=== PATIENT | male | born 1975 | race Two or more races ===

== ENCOUNTER 2018-07-02 09:06 | Emergency (ER) | payer SELFPAY ==
[~2018-07-02] VITALS: Ht 167.6 cm; Wt 104.3 kg
[2018-07-02 09:23] VITALS: BP 98/60
== END 2018-07-02 11:26 | disposition home or self-care (01) ==
LOC: ER 09:06
DX: J02.9 Acute pharyngitis, unspecified (principal); F17.210 Nicotine dependence, cigarettes, uncomplicated; F12.10 Cannabis abuse, uncomplicated
CPT/HCPCS: 71046

== ENCOUNTER 2018-10-28 09:57 | Emergency (ER) | payer MEDICAID ==
[~2018-10-28] VITALS: Ht 167.6 cm; Wt 101.6 kg
[2018-10-28 10:20] VITALS: BP 113/72
== END 2018-10-28 11:33 | disposition home or self-care (01) ==
LOC: ER 09:57
DX: K04.7 Periapical abscess without sinus (principal); I25.10 Atherosclerotic heart disease of native coronary artery without angina pectoris; I10 Essential (primary) hypertension; F17.210 Nicotine dependence, cigarettes, uncomplicated; F12.90 Cannabis use, unspecified, uncomplicated

== ENCOUNTER 2019-02-28 06:18 | Emergency (ER) | payer MEDICAID ==
[~2019-02-28] VITALS: Ht 167.6 cm; Wt 113.4 kg
[2019-02-28 06:56] VITALS: BP 154/98
[2019-02-28 07:16] LABS: INR 3.52 (0.9-1.15); Partial Thromboplastin Time 49.5 sec (23.64-32.05)
[2019-02-28] MEDS ORDERED: TETANUS-DIPTH-ACEL PERTUSSIS 0.5ML SYRG IM ONE (07:30)
[2019-02-28 08:01] LABS: Basophils # (auto) 0 uL; Basophils % (auto) 0.7 % (0.0-2.0); Eosinophils # (auto) 0.1 uL; Eosinophils % (auto) 1.2 % (0.0-7.0); Hematocrit 46.4 % (41.0-53.0); Hemoglobin 15.7 g/dL (13.5-17.5); Lymphocytes # (auto) 1.7 uL; Lymphocytes % (auto) 32.8 % (10.0-50.0); Mean Corpuscular Hemoglobin 29.9 pg (28.0-32.0); Mean Corpuscular Hgb Conc. 33.8 g/dL (32.0-36.0); Mean Corpuscular Volume 88.3 fL (80.0-100.0); Monocytes # (auto) 0.5 uL; Monocytes % (auto) 8.8 % (0.0-12.0); Neutrophils % (auto) 56.5 % (37.0-80.0); Nucleated Red Blood Cells % 0.2 %; Platelet Count (auto) 168 10^3/uL (140-450); Red Blood Cells 5.26 10^6/uL (4.5-5.90); White Blood Cell 5.3 10^3/uL (4.4-10.8)
[2019-02-28 08:17] LABS: Albumin 3.6 g/dL (3.4-5.0); Calcium 8.4 mg/dL (8.5-10.1); Potassium 3.8 mmol/L (3.5-5.1)
[2019-02-28 08:19] LABS: BUN/Creatinine Ratio 14.7
[2019-02-28 08:21] LABS: Bilirubin, Total 0.5 mg/dL (0.2-1.0); Total Protein 8.1 g/dL (6.4-8.2)
== END 2019-02-28 08:51 | disposition home or self-care (01) ==
LOC: ER 06:18
DX: S50.11XA Contusion of right forearm, initial encounter (principal); T45.515A Adverse effect of anticoagulants, initial encounter; F10.10 Alcohol abuse, uncomplicated; I25.10 Atherosclerotic heart disease of native coronary artery without angina pectoris; I11.0 Hypertensive heart disease with heart failure; I50.9 Heart failure, unspecified; X58.XXXA Exposure to other specified factors, initial encounter; Y93.89 Activity, other specified; Y92.89 Other specified places as the place of occurrence of the external cause; Y99.8 Other external cause status
CPT/HCPCS: 36415; 71045; 73090; 80053; 85025; 85610; 85730; 90471; 90715

== ENCOUNTER → 2019-07-07 | Emergency (ER) | payer MEDICAID ==
[~2019-07-07] VITALS: Ht 167.6 cm; Wt 111.1 kg
[~2019-07-07] MED LIST: MECLIZINE HCL 25 MG TAB PO ONE; SODIUM CHLORIDE 0.9% 1,000 ML IV ONE
[2019-07-07 11:48] LABS: Basophils # (auto) 0 10 ^3/uL (0-0.2); Basophils % (auto) 0.5 % (0.0-2.0); Eosinophils # (auto) 0.3 10 ^3/uL (0-0.8); Eosinophils % (auto) 3.1 % (0.0-7.0); Hematocrit 46.2 % (41.0-53.0); Lymphocytes # (auto) 1.6 10 ^3/uL (0.4-5.4); Mean Corpuscular Hemoglobin 30.7 pg (28.0-32.0); Mean Corpuscular Hgb Conc. 34.6 g/dL (32.0-36.0); Mean Corpuscular Volume 88.8 fL (80.0-100.0); Monocytes # (auto) 0.5 10 ^3/uL (0-1.3); Monocytes % (auto) 5.5 % (0.0-12.0); Neutrophils # (auto) 6.1 10 ^3/uL (1.6-8.6); Neutrophils % (auto) 71.9 % (37.0-80.0); Nucleated Red Blood Cells % 0.1 %; Platelet Count (auto) 184 10^3/uL (140-450); Red Blood Cells 5.21 10^6/uL (4.5-5.90); Red Cell Distribution Width 13.6 % (11.8-14.3); White Blood Cell 8.5 10^3/uL (4.4-10.8)
[2019-07-07 12:09] LABS: INR 2.12 (0.9-1.15); Partial Thromboplastin Time 41.7 sec (23.64-32.05)
[2019-07-07 14:42] LABS: Urine WBC None Seen /hpf (0 - 3)
[2019-07-07 15:00] VITALS: BP 120/72
[2019-07-07 15:07] LABS: Urine Bacteria NONE SEEN /hpf (None Seen); Urine Blood Negative /uL (Negative); Urine Specific Gravity 1.026 (1.001-1.035); Urine Sperm PRESENT /hpf (None Seen)
[2019-07-07 15:17] LABS: Alcohol, Urine < 3.0 mg/dL (0-5); Barbiturate Scree,Urine NEGATIVE (NEGATIVE); Benzodiazephine Screen, Urine NEGATIVE (NEGATIVE); Cannabinoid Screen, Urine POSITIVE (NEGATIVE); Cocaine Screen, Urine NEGATIVE (NEGATIVE); Opiate Scree,Urine NEGATIVE (NEGATIVE)
[2019-07-07 15:23] LABS: Amphetamine Screen, Urine NEGATIVE (NEGATIVE); Phencyclidine Screen, Urine NEGATIVE (NEGATIVE)
== END | disposition home or self-care (01) ==
LOC: ER 11:07
DX: H81.10 Benign paroxysmal vertigo, unspecified ear (principal); I25.810 Atherosclerosis of coronary artery bypass graft(s) without angina pectoris; I11.0 Hypertensive heart disease with heart failure; I50.9 Heart failure, unspecified; F12.10 Cannabis abuse, uncomplicated; Z87.891 Personal history of nicotine dependence; Z95.1 Presence of aortocoronary bypass graft
CPT/HCPCS: 36415; 71046; 80307; 81001; 83735; 84443; 84484; 85025; 85610; 85730; 93005; 96360; 99285; J7030

== ENCOUNTER → 2022-03-22 16:48 | Emergency (ER) | payer MEDICAID | END | disposition left against medical advice (07) | LOC: ER 16:48 | DX: U07.1 COVID-19 (principal); Z53.21 Procedure and treatment not carried out due to patient leaving prior to being seen by health care provider ==

== ENCOUNTER 2024-11-18 14:15 | Emergency (ER) | payer MEDICAID ==
[2024-11-18] MEDS ORDERED: CEPH250C PO (14:52)
--- NOTE | 2024-11-18 15:01 | ED.PDOC ---
Eye-HPI HPI Comments 49 y.o male with PMHx of mechanical valve, presents to the ED for a chief complaint of tenderness to the right upper tooth x 2 days associated with swelling x today. Patient reports 6 month history of right sided lower tooth pain and states he has not seen a dentist in over 10 years. Patient denies any fever, chills, discharge, difficulty swallowing or SOB. Chief Complaint: Tooth Pain Time Seen by MD: 14:48 Primary Care Provider: KONSTANTIN Bernabe Notes: Nurses Notes, Medications, Allergies Allergies: Coded Allergies: NO KNOWN ALLERGIES (Unverified , 07/02/18) Home Meds Active Scripts Cephalexin (KEFLEX CAPSULE) 250 Mg Cp, 1 CAP PO QID, #28 CAP Prov:TRESSA EAST MD 11/18/24 Information Source: Patient Mode of Arrival: Ambulatory Timing: Days (2) Duration: Since onset Mouth: Right, Upper, Tender, Swelling Onset: Spontaneous Associated signs and symptoms: Tooth Pain Past Medical History PAST MEDICAL HISTORY: CAD, CHF, HTN, Liver Past Medical History (Other): mechanical valve Surgical History: CABG Surgical History (Other): Valve replacement Family History Family History: Reviewed,noncontributory to illness Social History Smoker: Non-Smoker, Quit Greater Than 1 Year Alcohol: Occasionally Drugs: Denies Drug Use Lives In: Home Constitutional: denies: chills, diaphoresis, fatigue, fever, malaise, sweats, weakness, others EENTM: reports: others (right upper tooth pain with swelling ); denies: blurred vision, double vision, ear bleeding, ear discharge, ear drainage, ear pain, ear ringing, eye pain, eye redness, hearing loss, mouth pain, mouth swelling, nasal discharge, nose bleeding, nose congestion, nose pain, photophobia, tearing, t hroat pain, throat swelling, voice changes Respiratory: denies: cough, hemoptysis, orthopnea, SOB at rest, shortness of breath, SOB with excertion, stridor, wheezing, others Cardiovascular: denies: chest pain, dizzy spells, diaphoresis, Dyspnea on exertion, edema, irregular heart beat, left arm pain, lightheadedness, palpitations, PND, syncope, others Gastrointestinal: denies: abdomen distended, abdominal pain, blood streaked bowels, constipated, diarrhea, dysphagia, difficulty swallowing, hematemesis, melena, nausea, poor appetite, poor fluid intake, rectal bleeding, rectal pain, vomiting, others Genitourinary: denies: burning, dysuria, flank pain, frequency, hematuria, incontinence, penile discharge, penile sore, pain, testicle pain, testicle swelling, urgency, others Neurological: denies: dizziness, fainting, headache, left sided numbness, left sided weakness, numbness, paresthesia, pre-existing deficit, right sided numbness, right sided weakness, seizure, speech problems, tingling, tremors, weakness, others Musculoskeletal: denies: back pain, gout, joint pain, joint swelling, muscle pain, muscle stiffness, neck pain, others Integumetry: denies: bruises, change in color, change in hair/nails, dryness, laceration, lesions, lumps, rash, wounds, others Allergic/Immunocompromised: denies: Difficulty Healing, Frequent Infections, Hives, Itching, others Hematologic/Lymphatic: denies: anemia, blood clots, easy bleeding, easy bruising, swollen glands, others Endocrine: denies: excessive hunger, excessive sweating, excessive thirst, excessive urination, flushing, intolerance to cold, intolerance to heat, unexplained weight gain, unexplained weight loss, others Psychiatric: denies: anxiety, bipolar disorder, depression, hopeless, panic disorder, schizophrenia, sleepless, suicidal, others All Other Systems: Reviewed and Negative Physical Exam General Appearance: Mild Distress HEENT: Pharynx Normal, TMs Normal, Other (Dental caries to the right maxillary upper area) Neck: Full Range of Motion, Non-Tender, Normal, Normal Inspection Respiratory: Chest Non-Tender, Lungs Clear, No Accessory Muscle Use, No Respiratory Distress, Normal Breath Sounds Cardiovascular: No Edema, No JVD, No Murmur, No Gallop, Normal Peripheral Pulses, Regular Rate/Rhythm Breast Exam: Deferred Gastrointestinal: No Organomegaly, Non Tender, No Pulsatile Mass, Normal Bowel Sounds, Soft Genitalia: Deferred Pelvic: Deferred Rectal: Deferred Extremities: No calf tenderness, Normal capillary refill, Normal inspection, Normal range of motion, Non-tender, No pedal edema Musculoskeletal : Apperance: Normal Neurologic: Alert, chemical laboratory tester II-XII nml as Tested, No Motor Deficits, Normal Affect, Normal Mood, No Sensory Deficits Cerebellar Function: Normal Reflexes: Normal Skin: Dry, Normal Color, Warm Lymphatic: No Adenopathy Was a procedure done? Was a procedure done?: No EENT DIFF Eye: N/A Sore Throat: Peritonsillar Abscess, Peritonsillar Cellulitis, Viral Pharyngitis, Other (dental abscess ) X-Ray, Labs, Meds, VS At this time, the patient is being discharged and told to follow up with the dentist The patient will return to the emergency department's the condition worsens Time of 1ST Reevaluation: 14:58 Reevaluation 1ST: Unchanged Patient Education/Counseling: Diagnosis, Treatment, Prognosis, Need For Follow Up Family Education/Counseling: No Family Present Departure 1 Departure Time of Disposition: 15:38 Impression: Primary Impression: Dental caries Disposition: 01 HOME / SELF CARE / HOMELESS Condition: Fair e-Prescriptions Cephalexin (KEFLEX CAPSULE) 250 Mg Cp 1 CAP PO QID, #28 CAP Prov: TRESSA EAST MD 11/18/24 Discharged With: Self Critical Care Note Critical Care Time?: No Stability Stability form required: No I personally scribed for TRESSA EAST MD ([email or web address]) on 11/18/24 at 15:01. Electronically submitted by Sangeetha Sorto ([facility]). TRESSA EAST MD Nov 18, 2024 15:01
[2024-11-18 16:09] VITALS: BP 129/78; PULSE 71; RESP 20; TEMP 98.2; O2SAT 98
== END 2024-11-18 16:24 | disposition home or self-care (01) ==
LOC: ER 14:15
DX: K02.9 Dental caries, unspecified (principal); I11.0 Hypertensive heart disease with heart failure; I50.9 Heart failure, unspecified; I25.10 Atherosclerotic heart disease of native coronary artery without angina pectoris; Z95.1 Presence of aortocoronary bypass graft; Z95.2 Presence of prosthetic heart valve

== ENCOUNTER 2025-03-22 14:56 | Inpatient (IN) | payer MEDICAID ==
[~2025-03-22] VITALS: Ht 167.6 cm; Wt 110.9 kg
[~2025-03-22 14:56] MED LIST changes: +CEPH250C PO; -MECLIZINE HCL 25 MG TAB PO ONE; -SODIUM CHLORIDE 0.9% 1,000 ML IV ONE
--- NOTE | 2025-03-22 15:37 | ED.PDOC ---
History of Present Illness HPI Comments A 50 YEAR OLD MALE PRESENTS TO THE ED WITH COMPLAINT OF LEFT-SIDED FACIAL SWELLING. PATIENT STATES HE BEGAN TO EXPERIENCE LEFT-SIDED FACIAL/JAW SWELLING AND REDNESS TODAY AFTER EATING. PATIENT REPORTS HE ALSO HAS PAIN TO THIS AREA. PATIENT DENIES FEVER, CHILLS, SHORTNESS OF BREATH, CHEST PAIN, ABDOMINAL PAIN, NAUSEA, VOMITING, HEADACHE, OR OTHER COMPLAINTS. NO OTHER SYMPTOMS OR MODIFYING FACTORS AT THIS TIME. PATIENT IS ALERT, ORIENTED X 4, AND HAS STEADY GAIT. Chief Complaint: Face pain Time Seen by MD: 15:06 Primary Care Provider: IMP[employer] Reviewed Notes: Nurses Notes, Medications, Allergies Allergies: Coded Allergies: NO KNOWN ALLERGIES (Unverified , 07/02/18) Home Meds Active Scripts Cephalexin (KEFLEX CAPSULE) 250 Mg Cp, 1 CAP PO QID, #28 CAP Prov:TRESSA EAST MD 11/18/24 Information Source: Patient Mode of Arrival: Ambulatory Severity: Moderate Timing: Days Duration: Since onset, Days Prehospital treatment: None Medication Refill: For: Other (LEFT-SIDED FACIAL/JAW SWELLING) Past Medical History PAST MEDICAL HISTORY: CAD, CHF, HTN, Liver Surgical History: CABG Family History Family History: Reviewed,noncontributory to illness Social History Smoker: Non-Smoker, Quit Greater Than 1 Year Alcohol: Occasionally Drugs: Denies Drug Use Lives In: Home Constitutional: denies: chills, diaphoresis, fatigue, fever, malaise, sweats, weakness, others EENTM: reports: others (LEFT-SIDED FACIAL SWELLING); denies: blurred vision, double vision, ear bleeding, ear discharge, ear drainage, ear pain, ear ringing, eye pain, eye redness, hearing loss, mouth pain, mouth swelling, nasal discharge, nose bleeding, nose congestion, nose pain, photophobia, tearing, throat pain, throat swelling, voice changes Respiratory: denies: cough, hemoptysis, orthopnea, SOB at rest, shortness of breath, SOB with excertion, stridor, wheezing, others Cardiovascular: denies: chest pain, dizzy spells, diaphoresis, Dyspnea on exertion, edema, irregular heart beat, left arm pain, lightheadedness, palpitations, PND, syncope, others Gastrointestinal: denies: abdomen distended, abdominal pain, blood streaked bowels, constipated, diarrhea, dysphagia, difficulty swallowing, hematemesis, melena, nausea, poor appetite, poor fluid intake, rectal bleeding, rectal pain, vomiting, others Genitourinary: denies: burning, dysuria, flank pain, frequency, hematuria, incontinence, penile discharge, penile sore, pain, testicle pain, testicle swelling, urgency, others Neurological: denies: dizziness, fainting, headache, left sided numbness, left sided weakness, numbness, paresthesia, pre-existing deficit, right sided numbness, right sided weakness, seizure, speech problems, tingling, tremors, weakness, others Musculoskeletal: denies: back pain, gout, joint pain, joint swelling, muscle pain, muscle stiffness, neck pain, others Integumetry: reports: lumps (LEFT LATERAL SIDE FACE. ), others (LEFT-SIDED F ACIAL SWELLING/JAW SWELLING); denies: bruises, change in color, change in hair/nails, dryness, laceration, lesions, rash, wounds Allergic/Immunocompromised: denies: Difficulty Healing, Frequent Infections, Hives, Itching, others Hematologic/Lymphatic: denies: anemia, blood clots, easy bleeding, easy bruising, swollen glands, others Endocrine: denies: excessive hunger, excessive sweating, excessive thirst, excessive urination, flushing, intolerance to cold, intolerance to heat, unexplained weight gain, unexplained weight loss, others Psychiatric: denies: anxiety, bipolar disorder, depression, hopeless, panic disorder, schizophrenia, sleepless, suicidal, others All Other Systems: Reviewed and Negative Physical Exam General Appearance: No Apparent Distress, Obese HEENT: Normal ENT Inspection, PERRL/EOMI, Pharynx Normal, TMs Normal, Other (TENDERNESS, SWELLING AND HARDNESS ON LEFT LATERAL SIDE FACE, +PAROTID GLAN INFLAMMATION AND INFECTION. +PAROTITIS. ) Neck: Full Range of Motion, Non-Tender, Normal, Normal Inspection Respiratory: Chest Non-Tender, Lungs Clear, No Accessory Muscle Use, No Respiratory Distress, Normal Breath Sounds Cardiovascular: No Edema, No JVD, No Murmur, No Gallop, Normal Peripheral Pulses, Regular Rate/Rhythm Breast Exam: Deferred Gastrointestinal: No Organomegaly, Non Tender, No Pulsatile Mass, Normal Bowel Sounds, Soft Genitalia: Deferred Pelvic: Deferred Rectal: Deferred Extremities: No calf tenderness, Normal capillary refill, Normal inspection, Normal range of motion, Non-tender, No pedal edema Musculoskeletal : Apperance: Normal Neurologic: Alert, team primary care physician II-XII nml as Tested, No Motor Deficits, Normal Affect, Normal Mood, No Sensory Deficits Cerebellar Function: Normal Reflexes: Normal Skin: Dry, Normal Color, Warm, Other (A BUMP WITH LOCALIZED REDNESS, SWELLING, AND HARDNESS ON LEFT PAORTID GLAN AREA/REGION CONSISTENT WITH PAROTITIS. ) Peripheral Pulses: 2+ carotid (R), 2+ carotid (L) Lymphatic: No Adenopathy Was a procedure done? Was a procedure done?: No Differential Dx Considerations may include: PAROTITIS, DENTAL INFECTION, DENTAL ABSCESS, ALLERGIC REACTION, CELLULITIS, SOFT TISSUE INFECTION X-Ray, Labs, Meds, VS Vital Signs Date Time Temp Pulse Resp B/P (MAP) Pulse Ox O2 Delivery O2 Flow Rate FiO2 03/22/25 17:01 98.3 74 18 135/86 (102) 97 98.3 03/22/25 17:01 74 18 97 Room Air* 0 21 03/22/25 16:00 99.1 75 19 123/69 (87) 99 99.1 03/22/25 16:00 75 03/22/25 14:58 98.2 71 18 186/101 97 98.2 Lab Test 03/22/25 15:50 Range/Units White Blood Count 5.4 4.4-10.8 10^3/uL Red Blood Count 4.97 4.5-5.90 10^6/uL Hemoglobin 16.0 13.5-17.5 g/dL Hematocrit 46.6 41.0-53.0 % Mean Corpuscular Volume 93.8 80.0-100.0 fL Mean Corpuscular Hemoglobin 32.3 H 28.0-32.0 pg Mean Corpuscular Hemoglobin Concent 34.4 32.0-36.0 g/dL Red Cell Distribution Width 13.9 11.8-14.3 % Platelet Count 127 L 140-450 10^3/uL Mean Platelet Volume 8.3 6.9-10.8 fL Neutrophils (%) (Auto) 69.9 37.0-80.0 % Lymphocytes (%) (Auto) 21.3 10.0-50.0 % Monocytes (%) (Auto) 6.5 0.0-12.0 % Eosinophils (%) (Auto) 1.9 0.0-7.0 % Basophils (%) (Auto) 0.4 0.0-2.0 % Neutrophils # (Auto) 3.8 1.6-8.6 10 ^3/uL Lymphocytes # (Auto) 1.2 0.4-5.4 10 ^3/uL Monocytes # (Auto) 0.4 0-1.3 10 ^3/uL Eosinophils # (Auto) 0.1 0-0.8 10 ^3/uL Basophils # (Auto) 0 0-0.2 10 ^3/uL Nucleated Red Blood Cells 0.1 % Sodium Level 141 136-145 mmol/L Potassium Level 3.9 3.5-5.1 mmol/L Chloride Level 106 98-107 mmol/L Carbon Dioxide Level 26 20-31 mmol/L Anion Gap 9 5-15 Blood Urea Nitrogen 7 L 9-23 mg/dL Creatinine 0.71 0.700-1.30 mg/dL Glomerular Filtration Rate Calc 111 >90 mL/min BUN/Creatinine Ratio 9.9 L 10.0-20.0 Serum Glucose 213 H 74-106 mg/dL Lactic Acid Level 2.0 0.4-2.0 mmol/L Calcium Level 8.9 8.7-10.4 mg/dL B-Type Natriuretic Peptide 15.72 0-100 pg/mL Current Medications Medications (Trade) Dose Ordered Sig/Madeline Route Start Time Stop Time Status Last Admin Ceftriaxone Sodium 50 ml @ 100 mls/hr ONCE ONCE IV 03/22/25 15:30 03/22/25 15:59 DC 03/22/25 17:20 Exam: CT MAXILLOFACIAL WITHOUT HISTORY: LEFT LATERAL FACIAL SWELLING, R/O PAROTITIS COMPARISON: None TECHNIQUE: Nonenhanced axial images through the facial bones with coronal and sagittal MPR. Radiation Dose Information: CT Dose: CTDI volume is 56 mGy. Dose-length product is 1172 mGy*cm Findings: No acute facial bone fractures or subluxations are seen. The globes are intact. Extraocular muscles are symmetric. No retrobulbar hematoma. Scattered mucosal thickening of the paranasal sinuses. Right mandibular molar tooth dental caries. Mild periapical lucencies of the maxillary teeth. Symmetrical appearance of the bilateral parotid and submandibular glands . No radiopaque sialoliths. IMPRESSION: Scattered paranasal sinus mucosal thickening. Odontogenic disease. Symmetrical appearance of the bilateral parotid and submandibular glands . No radiopaque sialoliths. ATED BY: JOSE MANUEL ADAIR MD DICTATED DATE/TIME: 03/22/251611 SIGNED BY: JOSE MANUEL ADAIR MD SIGNED DATE/TIME: 03/22/251611 CC: X-Ray, Labs, Meds, VS Comment EXTERNAL MEDICAL RECORDS REVIEWED: [NONE] INDEPENDENT HISTORIANS: [NONE] SOCIAL DETERMINANTS OF HEALTH: [NONE] LABS ORDERED: CBC, BMP, CULTURE, LACTIC ACID W/REFLEX, BNP REVIEWED AND INTERPRETED RESULTS: IMAGING ORDERED: CT MAXFACE TREATMENTS ORDERED: NS 1 L IV, ROCEPHIN 1 G IV, CLINDAMYCIN 900 MG IV PROCEDURES PERFORMED: NONE CRITICAL CARE TIME: NONE I HAVE DISCUSSED THE PATIENT WITH THE ATTENDING PHYSICIAN DR. PRECIADO AND HE AGREES WITH THE PATIENT'S PLAN OF CARE. UPON MY PHYSICAL EXAMINATION, THE PATIENT HAD REDNESS, HARDNESS, AND SWELLING NOTED TO HIS LEFT PAROTID GLAND REGION CONSISTENT WITH ACUTE PAROTITIS. DUE TO THE PATIENT'S CLINICAL EXAM FINDINGS REVEALING FINDINGS SUGGESTING ACUTE PAROTITIS, I HAVE DETERMINED THE PATIENT NEEDS TO BE ADMITTED FOR FURTHER TREATMENT AND EVALUATION. THE ON-CALL HOSPITALIST WILL BE CONTACTED FOR A DMISSION IN HIS PATIENT. 1735: DR. COLLADO WAS DIRECTED REGARDING HIS PATIENT'S CASE, AND HE HAS A ACCEPTED THE PATIENT FOR ADMISSION AT THIS TIME. Images Reviewed?: Images reviewed and evaluated by me Time of 1ST Reevaluation: 17:13 Reevaluation 1ST: Unchanged Patient Education/Counseling: Diagnosis, Treatment Family Education/Counseling: Diagnosis, Treatment SEPSIS Sepsis Screen Date sepsis recognized/suspect: Mar 22, 2025 Time Sepsis recognized/suspect: 1500 Recent Procedure: No On Antibiotic Therapy: No Respiratory Rate >20: No Heart Rate >90: No Temp<36 C (96.8 F) or >38.3 C: No SBP <90 or MAP <65 mmHG: No New Acute Mental Status Change: No Is the patient on CPAP, BIPAP,: No Physician Orders Blood Culture (03/22/25 15:23) Heplock Iv (03/22/25 ) Maxillofacial Without (03/22/25 15:23) Vital Signs Date Time Temp Pulse Resp B/P (MAP) Pulse Ox O2 Delivery O2 Flow Rate FiO2 03/22/25 17:01 98.3 74 18 135/86 (102) 97 98.3 03/22/25 17:01 74 18 97 Room Air* 0 21 03/22/25 16:00 99.1 75 19 123/69 (87) 99 99.1 03/22/25 16:00 75 03/22/25 14:58 98.2 71 18 186/101 97 98.2 Laboratory Tests Test 03/22/25 15:50 Lactic Acid Level 2.0 mmol/L (0.4-2.0) White Blood Count 5.4 10^3/uL (4.4-10.8) Medications Medications Dose Ordered Sig/Madeline Route Start Time Stop Time Status Last Admin Dose Admin Ceftriaxone Sodium 50 ml @ 100 mls/hr ONCE ONCE IV 03/22/25 15:30 03/22/25 15:59 DC 03/22/25 17:20 Departure 1 Departure Time of Disposition: 17:30 Impression: Primary Impression: Acute parotitis Disposition: ADMITTED INPATIENT Condition: Serious Critical Care Note Critical Care Time?: No Stability Stability form required: No Unstable for transfer: Requires medication, ED Physician Assesment, Possible rapid decline I personally scribed for ROBERTH GOMEZ ([email or web address]) on 03/22/25 at 15:37. Electronically submitted by Nic Nieves ([email or web address]). I personally scribed for ROBERTH GOMEZ ([email or web address]) on 03/22/25 at 16:20. Electronically submitted by Nic Nieves ([email or web address]). I personally scribed for ROBERTH GOMEZ ([email or web address]) on 03/22/25 at 17:40. Electronically submitted by Nic Nieves ([email or web address]). ROBERTH GOMEZ Mar 22, 2025 15:37
--- NOTE | 2025-03-22 16:15 | DVH ---
Exam: CT MAXILLOFACIAL WITHOUT HISTORY: LEFT LATERAL FACIAL SWELLING, R/O PAROTITIS COMPARISON: None TECHNIQUE: Nonenhanced axial images through the facial bones with coronal and sagittal MPR. Radiation Dose Information: CT Dose: CTDI volume is 56 mGy. Dose-length product is 1172 mGy*cm Findings: No acute facial bone fractures or subluxations are seen. The globes are intact. Extraocular muscles are symmetric. No retrobulbar hematoma. Scattered mucosal thickening of the paranasal sinuses. Right mandibular molar tooth dental caries. Mild periapical lucencies of the maxillary teeth. Symmetrical appearance of the bilateral parotid and submandibular glands . No radiopaque sialoliths. IMPRESSION: Scattered paranasal sinus mucosal thickening. Odontogenic disease. Symmetrical appearance of the bilateral parotid and submandibular glands . No radiopaque sialoliths.
[2025-03-22 16:26] LABS: Hematocrit 46.6 % (41.0-53.0); Hemoglobin 16.0 g/dL (13.5-17.5); Mean Corpuscular Hemoglobin 32.3 pg (28.0-32.0); Mean Corpuscular Volume 93.8 fL (80.0-100.0); Nucleated Red Blood Cells % 0.1 %
[2025-03-22 16:33] LABS: Chloride 106 mmol/L (98-107); Potassium 3.9 mmol/L (3.5-5.1); Sodium 141 mmol/L (136-145)
[2025-03-22 16:34] LABS: Anion Gap 9 (5-15); Calcium 8.9 mg/dL (8.7-10.4); Carbon Dioxide 26 mmol/L (20-31)
[2025-03-22 16:39] LABS: BUN/Creatinine Ratio 9.9 (10.0-20.0)
[2025-03-22 16:42] LABS: Blood Urea Nitrogen 7 mg/dL (9-23); Glucose 213 mg/dL (74-106)
[2025-03-22 17:01] VITALS: PULSE 74; RESP 18; O2SAT 97
[2025-03-22] MEDS: CLINDAMYCIN 900MG IV 50 ML IV ONE ×2 (17:50→18:22)
[2025-03-22] MEDS ORDERED: DOCUSATE SOD 100 MG CAP PO PRN (18:00)
[2025-03-22] MEDS ORDERED: ONDANSETRON HCL 4 MG/2 ML VIAL IV PRN (18:00)
[2025-03-22] MEDS ORDERED: MORPHINE SULFATE INJ 2 MG/ml SYRG IV PRN ×2 (18:00)
[2025-03-22] MEDS ORDERED: NITROGLYCERIN 0.4 MG SL TAB SL PRN (18:00)
[2025-03-22] MEDS ORDERED: HYDROcodone-ACET 5/325MG TAB PO PRN (18:00)
--- NOTE | 2025-03-22 18:03 | DVHHP2 ---
History of Present Illness History of Present Illness Rashel Morrell is a 50-year-old male with a history of coronary artery disease, hypertension, type 2 diabetes, morbid obesity, and prior valve replacement presenting to the emergency room with left-sided facial swelling that began today after eating.The patient developed left facial jaw swelling and redness today following a meal. The patient denies any associated chest pain, fever, or chills. Review of Systems Constitutional: No: Fever, Chills, Sweats, Weakness, Malaise, Other Respiratory: No: Cough, Dry, Shortness of breath, SOB with excertion, Wheezing, Hemoptysis, Pleuritic Pain, Sputum, Wheezing, Other Cardiovascular: No: Chest Pain, Palpitations, Orthopnea, Paroxysmal Noc. Dyspnea, Edema, Lt Headedness, Other Allergies: Coded Allergies: NO KNOWN ALLERGIES (Unverified , 07/02/18) Exam Vital Signs Vital Signs Date Time Temp Pulse Resp B/P (MAP) Pulse Ox O2 Delivery O2 Flow Rate FiO2 03/22/25 17:01 98.3 74 18 135/86 (102) 97 98.3 03/22/25 17:01 Room Air* 0 21 General Appearance: Alert, Cooperative, No acute distress Respiratory: Clear to auscultation, Normal air movement Cardiovascular: Regular rate, Normal S1, Normal S2, No murmurs Abdominal: Normal bowel sounds, Soft, No tenderness, No hepatospenomegaly Extremities: No clubbing, No cyanosis Labs/Xrays Labs Test 03/22/25 15:50 Range/Units White Blood Count 5.4 4.4-10.8 10^3/uL Red Blood Count 4.97 4.5-5.90 10^6/uL Hemoglobin 16.0 13.5-17.5 g/dL Hematocrit 46.6 41.0-53.0 % Mean Corpuscular Volume 93.8 80.0-100.0 fL Mean Corpuscular Hemoglobin 32.3 H 28.0-32.0 pg Mean Corpuscular Hemoglobin Concent 34.4 32.0-36.0 g/dL Red Cell Distribution Width 13.9 11.8-14.3 % Platelet Count 127 L 140-450 10^3/uL Mean Platelet Volume 8.3 6.9-10.8 fL Neutrophils (%) (Auto) 69.9 37.0-80.0 % Lymphocytes (%) (Auto) 21.3 10.0-50.0 % Monocytes (%) (Auto) 6.5 0.0-12.0 % Eosinophils (%) (Auto) 1.9 0.0-7.0 % Basophils (%) (Auto) 0.4 0.0-2.0 % Neutrophils # (Auto) 3.8 1.6-8.6 10 ^3/uL Lymphocytes # (Auto) 1.2 0.4-5.4 10 ^3/uL Monocytes # (Auto) 0.4 0-1.3 10 ^3/uL Eosinophils # (Auto) 0.1 0-0.8 10 ^3/uL Basophils # (Auto) 0 0-0.2 10 ^3/uL Nucleated Red Blood Cells 0.1 % Sodium Level 141 136-145 mmol/L Potassium Level 3.9 3.5-5.1 mmol/L Chloride Level 106 98-107 mmol/L Carbon Dioxide Level 26 20-31 mmol/L Anion Gap 9 5-15 Blood Urea Nitrogen 7 L 9-23 mg/dL Creatinine 0.71 0.700-1.30 mg/dL Glomerular Filtration Rate Calc 111 >90 mL/min BUN/Creatinine Ratio 9.9 L 10.0-20.0 Serum Glucose 213 H 74-106 mg/dL Lactic Acid Level 2.0 0.4-2.0 mmol/L Calcium Level 8.9 8.7-10.4 mg/dL B-Type Natriuretic Peptide 15.72 0-100 pg/mL SEPSIS Sepsis Screen Date sepsis recognized/suspect: Mar 22, 2025 Time Sepsis recognized/suspect: 1500 Recent Procedure: No On Antibiotic Therapy: No Respiratory Rate >20: No Heart Rate >90: No Temp<36 C (96.8 F) or >38.3 C: No SBP <90 or MAP <65 mmHG: No New Acute Mental Status Change: No Is the patient on CPAP, BIPAP,: No Physician Orders Blood Culture (03/22/25 15:23) Heplock Iv (03/22/25 ) Maxillofacial Without (03/22/25 15:23) Admit (03/22/25 17:59) Allergies (03/22/25 17:59) 2 Gm Sodium Diet (03/22/25 Dinner) Hydrocodone-Acet 5/325mg Tab (Delta 5/32 (03/22/25 18:00) Ondansetron Hcl (Zofran) (03/22/25 18:00) Docusate Sodium Capsule (Colace Capsule) (03/22/25 18:00) Condition: Fair (03/22/25 17:59) Morphine Sulfate Injection (03/22/25 18:00) Nitroglycerin Sublingual (Ntrostat Subli (03/22/25 18:00) Morphine Sulfate Injection (03/22/25 18:00) Stat Ekg For Chest Pain (03/22/25 17:59) Notify Md Of Changes From Base (03/22/25 17:59) Daytime Babysitter For 24 Hours (03/22/25 17:59) Emergency Dysrhythmia Protocol (03/22/25 17:59) Rhythm Strips Once Every Shift (03/22/25 17:59) Oxygen By Nasal Cannula (03/22/25 17:59) Ceftriaxone Ivpb Rocephin (03/23/25 09:00) Clindamycin Ivpb Cleocin (03/22/25 22:00) Warfarin Per Rx Protocol (Coumadin Per R (03/22/25 18:15) Prothrombin Time W/ Inr (03/22/25 18:01) Glucose Blood (Accu-Chek Comfort Curve T (03/22/25 22:00) Mild Sliding Scale (03/22/25 22:00) Dextrose 50% Syringe (03/22/25 18:15) Consistent Carb(Ccho)Diabetes (03/22/25 Dinner) Vital Signs Date Time Temp Pulse Resp B/P (MAP) Pulse Ox O2 Delivery O2 Flow Rate FiO2 03/22/25 17:01 98.3 74 18 135/86 (102) 97 98.3 03/22/25 17:01 74 18 97 Room Air* 0 21 03/22/25 16:00 99.1 75 19 123/69 (87) 99 99.1 03/22/25 16:00 75 03/22/25 14:58 98.2 71 18 186/101 97 98.2 Laboratory Tests Test 03/22/25 15:50 Lactic Acid Level 2.0 mmol/L (0.4-2.0) White Blood Count 5.4 10^3/uL (4.4-10.8) Medications Medications Dose Ordered Sig/Madeline Route Start Time Stop Time Status Last Admin Dose Admin Ceftriaxone Sodium 50 ml @ 100 mls/hr ONCE ONCE IV 03/22/25 15:30 03/22/25 15:59 DC 03/22/25 17:20 100 MLS/HR Clindamycin Phosphate 50 ml @ 50 mls/hr ONCE ONCE IV 03/22/25 15:30 03/22/25 16:29 DC 03/22/25 17:50 50 MLS/HR Assessment/Plan Assessment/Plan Acute Parotiditis Assessment: Patient developed acute left facial jaw swelling and redness today after eating, consistent with acute parotiditis. No associated fever, chills, or chest pain reported. Plan: - Admit to hospital for acute parotiditis - Start IV rocephin 1mg - Start clindamycin 300mg q8h Type 2 Diabetes Mellitus Assessment: Patient has established type 2 diabetes requiring glucose management during hospitalization. Plan: - Start insulin sliding scale History of CABG Assessment: Patient has history of coronary artery bypass graft surgery with valve replacement requiring anticoagulation management. Plan: - Continue Coumadin per pharmacy Hypertension Assessment: Patient has established hypertension requiring monitoring during hospitalization. Plan: - Monitor blood pressure Morbid Obesity Assessment: Patient has morbid obesity requiring monitoring during hospitaliza tion. Plan: - Monitor Plan discussed with: Patient My Orders Orders - SILVANA DUNBAR Procedure Category Date Status Time Admit ADMIT 03/22/25 Transmitted 17:59 Allergies CLARE 03/22/25 In Process 17:59 2 Gm Sodium Diet DIET 03/22/25 Transmitted Dinner Hydrocodone-Acet PHA 03/22/25 Transmitted 5/325mg Tab (Delta 18:00 Ondansetron Hcl PHA 03/22/25 Transmitted (Zofran) 18:00 Docusate Sodium PHA 03/22/25 Transmitted Capsule (Colace 18:00 Condition: Fair CLARE 03/22/25 In Process 17:59 Morphine Sulfate PHA 03/22/25 Transmitted Injection 18:00 Nitroglycerin PHA 03/22/25 Transmitted Sublingual (Ntrostat 18:00 Morphine Sulfate PHA 03/22/25 Transmitted Injection 18:00 Stat Ekg For Chest CLARE 03/22/25 In Process Pain 17:59 Notify Of Changes CLARE 03/22/25 In Process From Base 17:59 Daytime Babysitter For CLARE 03/22/25 In Process 24 Hours 17:59 Emergency Dysrhythmia CLARE 03/22/25 In Process Protocol 17:59 Rhythm Strips Once CLARE 03/22/25 In Process Every Shift 17:59 Oxygen By Nasal RT 03/22/25 Transmitted Cannula 17:59 Ceftriaxone Ivpb PHA 03/23/25 Transmitted Rocephin 09:00 Clindamycin Ivpb PHA 03/22/25 Transmitted Cleocin 22:00 Warfarin Per Rx PHA 03/22/25 Transmitted Protocol (Coumadin 18:15 Prothrombin Time W/ LAB 03/22/25 Transmitted INR 18:01 Glucose Blood PHA 03/22/25 Transmitted (Accu-Chek Comfort 22:00 Mild Sliding Scale PHA 03/22/25 Transmitted 22:00 Dextrose 50% Syringe PHA 03/22/25 Transmitted 18:15 Consistent DIET 03/22/25 Transmitted Carb(Ccho)Diabetes Dinner Date of Service: Mar 23, 2025 Billing Provider: JAROD COLLADO MD Common Visit Codes: [id number] INP/OBS CARE (MOD), [id number] INP/OBS CARE (HIGH) SILVANA DUNBAR STOCK FEEDER Mar 22, 2025 18:03
[2025-03-22] MEDS ORDERED: DEXTROSE (50%) 50ML SYRG IV PRN (18:15)
[2025-03-22 18:30] VITALS: BP 119/63; PULSE 71; RESP 16; TEMP 98.2; O2SAT 98
[2025-03-22 18:33] LABS: INR 1.77 (0.9-1.15); Prothrombin Time 17.7 sec (9.3-11.8)
[2025-03-22 20:00] VITALS: PULSE 75; RESP 18; O2SAT 98
[2025-03-22 21:00] VITALS: BP 122/62; PULSE 69; RESP 18; TEMP 97.9; O2SAT 99
[2025-03-22] MEDS ORDERED: CLINDAMYCIN 300MG IV 50 ML IV ONE (21:42)
[2025-03-22] MEDS: InsuLIN REG 1unit/0.01ml Soln (100units/ml) SC SCH (22:00)
[2025-03-22] MEDS: CLINDAMYCIN 300MG IV 50 ML IV SCH (22:05)
[2025-03-22] MEDS: ACCU-CHEK COMFORT CURVE STRIP VI SCH (22:22)
[2025-03-23 01:00] VITALS: BP 123/69; PULSE 63; RESP 18; TEMP 98.2; O2SAT 98
[2025-03-23 04:48] LABS: Hematocrit 44.1 % (41.0-53.0); Hemoglobin 15.2 g/dL (13.5-17.5); Mean Corpuscular Hemoglobin 32.1 pg (28.0-32.0); Mean Corpuscular Volume 93.0 fL (80.0-100.0); Nucleated Red Blood Cells % 0.2 %
[2025-03-23 05:00] VITALS: BP 118/65; PULSE 60; RESP 16; TEMP 98.3; O2SAT 96
[2025-03-23 05:03] LABS: INR 1.93 (0.9-1.15); Partial Thromboplastin Time 37.5 SEC (24.5-34.5); Prothrombin Time 19.2 sec (9.3-11.8)
[2025-03-23 09:00] VITALS: BP 132/74; PULSE 68; RESP 18; TEMP 97.9; O2SAT 93
--- NOTE | 2025-03-23 10:50 | DVHPN2 ---
Progress Note Date Seen: Mar 23, 2025 Medical Necessity Reason Pt with a Central, PICC or Fol: No Subjective Review of Systems: CVS:Normal, RESPIRATORY:Normal, GI:Normal, NEURO:Normal Objective vital signs Vital Sign Date Time Temp Pulse Resp B/P (MAP) Pulse Ox O2 Delivery O2 Flow Rate FiO2 03/23/25 09:00 97.9 68 18 132/74 (93) 93 97.9 03/22/25 20:00 Room Air* 0 21 Total Intake and Output 03/22/25 03/22/25 03/23/25 15:00 23:00 07:00 Intake Total 100 ml Balance 100 ml medications Current Medications Medications Dose Ordered Sig/Madeline Route Start Time Stop Time Status Last Admin Dose Admin Acetaminophen/ Hydrocodone Bitart 1 tab Q4HP PRN PO 03/22/25 18:00 Ondansetron HCl 4 mg Q4HP PRN IV 03/22/25 18:00 Docusate Sodium 100 mg BIDPRN PRN PO 03/22/25 18:00 Morphine Sulfate 2 mg Q4HPRN PRN IV 03/22/25 18:00 Nitroglycerin 0.4 mg Q5MINP PRN SL 03/22/25 18:00 Morphine Sulfate 2 mg Q30M PRN IV 03/22/25 18:00 Ceftriaxone Sodium 50 ml @ 100 mls/hr DAILY@09 IV 03/23/25 09:00 03/23/25 09:53 100 MLS/HR Clindamycin Phosphate 50 ml @ 50 mls/hr Q8HR IV 03/22/25 22:00 03/23/25 05:10 50 MLS/HR Warfarin Sodium RX PROTOCOL PER PHARMACY PO 03/22/25 18:15 Diagnostic Test (Pha) 1 strip ACHS 03/22/25 22:00 03/23/25 06:13 1 STRIP Insulin Human Regular ACHS SC 03/22/25 22:00 Dextrose 50 ml UD PRN IV 03/22/25 18:15 Examination: GENERAL:Normal, LUNGS:Normal, CVS:Normal, ABDOMEN:Normal, SKIN:Normal, NEURO:Normal laboratory and microbiology Laboratory Tests 03/23/25 04:01 03/22/25 15:50 Test 03/22/25 15:50 Range/Units Serum Glucose 213 H 74-106 mg/dL Labs and/or images reviewed: Labs reviewed by me, Image(s) reviewed by me Problem List/Assessment/Plan Problem List/Assessment/Plan Rashel Morrell was admitted for acute parotiditis with left facial swelling, which has improved during hospitalization. Acute Parotiditis Assessment: Patient was admitted for acute parotiditis with associated left facial swelling. Clinical improvement has been noted during hospitalization with reduction in facial swelling. Plan: - Continue Rocephin 1 gram daily - Continue clindamycin 800 mg every 8 hours - Discharge planned in 1-2 days depending on continued clinical improvement Type 2 Diabetes Mellitus Assessment: Patient has established type 2 diabetes mellitus requiring glycemic management during hospitalization. Plan: - Continue insulin sliding scale History of CABG Assessment: Patient has history of coronary artery bypass grafting requiring ongoing monitoring. Plan: - Monitor and continue current management Hypertension Assessment: Patient has established hypertension requiring ongoing monitoring. Plan: - Continue to monitor blood pressure Morbid Obesity Assessment: Patient has morbid obesity requiring lifestyle modifications. Plan: - Monitor - Advised to exercise Plan discussed with: Patient My Orders My Orders Orders - SILVANA DUNBAR Procedure Category Date Status Time Admit ADMIT 03/22/25 Transmitted 17:59 Allergies CLARE 03/22/25 In Process 17:59 Hydrocodone-Acet PHA 03/22/25 In Process 5/325mg Tab ([place] 18:00 Ondansetron Hcl PHA 03/22/25 In Process (Zofran) 18:00 Docusate Sodium PHA 03/22/25 In Process Capsule (Colace 18:00 Condition: Fair CLARE 03/22/25 In Process 17:59 Morphine Sulfate PHA 03/22/25 In Process Injection 18:00 Nitroglycerin PHA 03/22/25 In Process Sublingual (Ntrostat 18:00 Morphine Sulfate PHA 03/22/25 In Process Injection 18:00 Stat Ekg For Chest CLARE 03/22/25 In Process Pain 17:59 Notify Md Of Changes CLARE 03/22/25 In Process From Base 17:59 Staff [employer] Officer For CLARE 03/22/25 In Process 24 Hours 17:59 Emergency Dysrhythmia CLARE 03/22/25 In Process Protocol 17:59 Rhythm Strips Once CLARE 03/22/25 In Process Every Shift 17:59 Oxygen By Nasal RT 03/22/25 Transmitted Cannula 17:59 Ceftriaxone 1gm/50ml PHA 03/23/25 In Process (Rocephin) 09:00 Clindamycin 300mg Iv PHA 03/22/25 In Process (Cleocin Iv) 22:00 Warfarin Per Rx PHA 03/22/25 In Process Protocol (Coumadin 18:15 Glucose Blood PHA 03/22/25 In Process (Accu-Chek Comfort 22:00 Insulin R (Human) PHA 03/22/25 In Process (Insulin R) 22:00 Dextrose 50% Syringe PHA 03/22/25 In Process 18:15 Consistent DIET 03/22/25 Transmitted Carb(Ccho)Diabetes Dinner Hepatitis B Surface LAB 03/22/25 In Process Antigen 19:11 Hepatitis C Antibody LAB 03/22/25 In Process 19:11 Date of Service: Mar 23, 2025 Billing Provider: JAROD COLLADO MD Common Visit Codes: [id number] INP/OBS CARE (MOD) SILVANA DUNBAR BITUMASTIC APPLIER Mar 23, 2025 10:50
[2025-03-23 16:46] VITALS: BP 124/80; PULSE 61; RESP 16; TEMP 97.9; O2SAT 97
[2025-03-23] MEDS: WARFARIN SODIUM 1 MG TAB PO ONE (18:00)
[2025-03-23] MEDS ORDERED: ATOR40TA52 PO (18:10)
[2025-03-23] MEDS ORDERED: FURO40TA4 PO (18:10)
[2025-03-23] MEDS ORDERED: WARF-111 PO (18:10)
[2025-03-23] MEDS ORDERED: CARV3.1240 PO (18:10)
[2025-03-23] MEDS ORDERED: METF-370 PO (18:10)
[2025-03-24 06:51] LABS: Hematocrit 43.9 % (41.0-53.0); Hemoglobin 15.4 g/dL (13.5-17.5); Mean Corpuscular Hemoglobin 32.4 pg (28.0-32.0); Mean Corpuscular Volume 92.8 fL (80.0-100.0); Nucleated Red Blood Cells % 0.1 %
[2025-03-24 07:04] LABS: INR 1.82 (0.9-1.15); Partial Thromboplastin Time 37.1 SEC (24.5-34.5); Prothrombin Time 18.2 sec (9.3-11.8)
[2025-03-24 09:00] VITALS: BP 126/76; PULSE 64; RESP 17; TEMP 97.7; O2SAT 97
[2025-03-24] MEDS ORDERED: AUG875T PO (10:03)
[2025-03-24] MEDS ORDERED: CLIN1CAP70 PO (10:03)
--- NOTE | 2025-03-24 10:03 | DVHDS2 ---
Discharge Summary Date of Admission Mar 22, 2025 at 17:59 Date of Discharge: Mar 24, 2025 Admitting Diagnosis acute Parotiditis Labs/Diagnostic Data: Laboratory Results Test 03/24/25 05:47 03/24/25 05:46 03/22/25 15:50 POC Glucose 190 mg/dl (70-106) White Blood Count 7.5 10^3/uL (4.4-10.8) Red Blood Count 4.74 10^6/uL (4.5-5.90) Hemoglobin 15.4 g/dL (13.5-17.5) Hematocrit 43.9 % (41.0-53.0) Mean Corpuscular Volume 92.8 fL (80.0-100.0) Mean Corpuscular Hemoglobin 32.4 pg (28.0-32.0) Mean Corpuscular Hemoglobin Concent 34.9 g/dL (32.0-36.0) Red Cell Distribution Width 13.3 % (11.8-14.3) Platelet Count 120 10^3/uL (140-450) Mean Platelet Volume 8.4 fL (6.9-10.8) Neutrophils (%) (Auto) 70.6 % (37.0-80.0) Lymphocytes (%) (Auto) 19.8 % (10.0-50.0) Monocytes (%) (Auto) 6.6 % (0.0-12.0) Eosinophils (%) (Auto) 2.5 % (0.0-7.0) Basophils (%) (Auto) 0.5 % (0.0-2.0) Neutrophils # (Auto) 5.3 10 ^3/uL (1.6-8.6) Lymphocytes # (Auto) 1.5 10 ^3/uL (0.4-5.4) Monocytes # (Auto) 0.5 10 ^3/uL (0-1.3) Eosinophils # (Auto) 0.2 10 ^3/uL (0-0.8) Basophils # (Auto) 0 10 ^3/uL (0-0.2) Nucleated Red Blood Cells 0.1 % Prothrombin Time 18.2 sec (9.3-11.8) Prothrombin Time INR 1.82 (0.9-1.15) Activated Partial Thromboplast Time 37.1 SEC (24.5-34.5) Creatinine 0.75 mg/dL (0.700-1.30) Glomerular Filtration Rate Calc 109 mL/min (>90) Sodium Level 141 mmol/L (136-145) Potassium Level 3.9 mmol/L (3.5-5.1) Chloride Level 106 mmol/L (98-107) Carbon Dioxide Level 26 mmol/L (20-31) Anion Gap 9 (5-15) Blood Urea Nitrogen 7 mg/dL (9-23) BUN/Creatinine Ratio 9.9 (10.0-20.0) Serum Glucose 213 mg/dL (74-106) Lactic Acid Level 2.0 mmol/L (0.4-2.0) Calcium Level 8.9 mg/dL (8.7-10.4) B-Type Natriuretic Peptide 15.72 pg/mL (0-100) Other Laboratory Tests 03/24/25 05:46 03/22/25 15:50 Brief Hx & Hospital Course: The patient is a 50-year-old male who was admitted to the hospital for evaluation and management of acute parotiditis. During hospitalization, he was started on intravenous Rocephin and Clindamycin, along with IV fluids for hydration. His type 2 diabetes mellitus was managed with insulin and a sliding scale regimen. His INR was closely monitored due to a history of coronary artery bypass grafting with valve replacement, and his Coumadin therapy was continued. Blood pressure was monitored and managed for underlying hypertension. The patient demonstrated gradual clinical improvement with reduction in parotid swelling and tenderness. At discharge, he was transitioned to oral antibiotics with Augmentin 875-125 mg twice daily and Clindamycin 300 mg three times daily for a total of 14 days. He was advised to maintain good hydration, monitor for recurrence of swelling or fever, and return to the hospital if symptoms worsen. Follow-up with his primary care provider was recommended within one week after discharge. Condition at Discharge: Fair Final Diagnosis/Problems List Acute Parotiditis Assessment: Patient was admitted for acute parotiditis with associated left facial swelling. Clinical improvement has been noted during hospitalization with reduction in facial swelling. Plan: - Continue Rocephin 1 gram daily - Continue clindamycin 800 mg every 8 hours - Discharge planned in 1-2 days depending on continued clinical improvement Type 2 Diabetes Mellitus Assessment: Patient has established type 2 diabetes mellitus requiring glycemic management during hospitalization. Plan: - Continue insulin sliding scale History of CABG Assessment: Patient has history of coronary artery bypass grafting requiring ongoing monitoring. Plan: - Monitor and continue current management Hypertension Assessment: Patient has established hypertension requiring ongoing monitoring. Plan: - Continue to monitor blood pressure Morbid Obesity Discharge Disposition: Home Discharge Instruct/Medications Diet: Cardiac 2g Na,low cholest Activity: No Restrictions, As Tolerated Follow Up/Referral: PCP within 1 week Scheduled Amoxicillin & Pot Clavulanate (Augmentin Tablet), 875 MG PO BID Atorvastatin Calcium (Atorvastatin Calcium), 1 TAB PO DAILY, (Reported) Carvedilol (Carvedilol), 1 TAB PO BID, (Reported) Clindamycin Hcl (Clindamycin Hcl), 1 CAP PO TID Furosemide (Furosemide), 1 TAB PO DAILY, (Reported) Metformin Hydrochloride (Metformin Hcl), 1 TAB PO BID, (Reported) Warfarin Sodium (Warfarin Sodium), 1 TAB PO DAILY, (Reported) Discontinued Medications Cephalexin (Keflex Capsule), 1 CAP PO QID Discharge Statement: "Patient was advised to return to the ER or call 911 if any headaches, dizziness, shortness of breath, chest pain, abdominal pain, bleeding, fevers, or worsening of medical condition. Patient was counseled about treatment plan, medications, possible side effects, patientverbalized understanding. All questions were answered to the best of my ability. This discharge took greater then 30 minutes in planning, reviewing documentation, counseling the patient, and discussing with other team members." ASSESSMENT ASSESSMENT Assessment Acute Parotiditis Assessment: Patient was admitted for acute parotiditis with associated left facial swelling. Clinical improvement has been noted during hospitalization with reduction in facial swelling. Plan: - Continue Rocephin 1 gram daily - Continue clindamycin 800 mg every 8 hours - Discharge planned in 1-2 days depending on continued clinical improvement Type 2 Diabetes Mellitus Assessment: Patient has established type 2 diabetes mellitus requiring glycemic management during hospitalization. Plan: - Continue insulin sliding scale History of CABG Assessment: Patient has history of coronary artery bypass grafting requiring ongoing monitoring. Plan: - Monitor and continue current management Hypertension Assessment: Patient has established hypertension requiring ongoing monitoring. Plan: - Continue to monitor blood pressure Morbid Obesity SILVANA DUNBAR [facility] Mar 24, 2025 10:03
[2025-03-24 10:29] VITALS: BP 126/76; PULSE 64; RESP 17; TEMP 97.7; O2SAT 97
[2025-03-24 12:53] VITALS: BP 129/88; PULSE 63; RESP 18; TEMP 97.6; O2SAT 95
[2025-03-25 10:18] LABS: Hepatitis B Surface Antigen Negative (Negative)
[2025-03-25 10:46] LABS: Hepatitis C Antibody Negative (Negative)
== END 2025-03-24 13:40 | disposition home or self-care (01) | DRG 115 ==
LOC: ER 14:56 → OVERFLOW 17:59 → CENTRAL 03-23 12:46
PROVIDERS: ADMIT Nurse Practitioner Family; ATTEND Nurse Practitioner Family
DX: K11.21 Acute sialoadenitis (principal); I11.0 Hypertensive heart disease with heart failure; I50.9 Heart failure, unspecified; E11.9 Type 2 diabetes mellitus without complications; E66.01 Morbid (severe) obesity due to excess calories; D68.69 Other thrombophilia; Z79.01 Long term (current) use of anticoagulants; Z95.2 Presence of prosthetic heart valve; I25.10 Atherosclerotic heart disease of native coronary artery without angina pectoris; Z95.1 Presence of aortocoronary bypass graft; Z87.891 Personal history of nicotine dependence; Z68.39 Body mass index [BMI] 39.0-39.9, adult
CPT/HCPCS: 36415; 70486; 80048; 82565; 82962; 83605; 83880; 85025; 85610; 85730; 86803; 87040; 87340; 96365; G0378; J1815; J3490